=== PATIENT | female | born 1945 | race Caucasian/White ===

== ENCOUNTER 2017-07-07 08:23 | Outpatient (CLI) | payer MEDICARE, BC ==
[~2017-07-07] VITALS: Ht 165.1 cm; Wt 51.4 kg
--- NOTE | ~2017-07-07 | OP ---
PATIENT NAME: JAUN BARTON MEDICAL RECORD: [id number] :43 LOCATION:D.CAT ADMISSION DATE: SURGEON: JAYDE MUNOZ MD DATE OF OPERATION: 07/07/2017 PROCEDURE: 1. GAS LINE INSTALLER SUPERVISOR stent right iliac. 2. Aortofemoral runoff. 3. Abdominal aortography. INDICATION: Claudication and peripheral vascular disease. PROCEDURE IN DETAIL: After informed consent was obtained and after detailed explanation of risks, benefits as well as alternative therapies, the patient elected to proceed with angiogram and angioplasty. The right femoral area was prepped and draped in normal sterile fashion. The right femoral artery was cannulated via modified Seldinger technique with placement of 6-Japanese sheath. All catheters exchanged through this sheath. FINDINGS: Abdominal aortography was performed. The catheter was pulled down for aortofemoral runoff. Abdominal aortography reveals no significant abdominal aortic disease. No dissection or aneurysm formation or previously placed renal stent that is widely patent noted, renal artery stenosis elsewise. RIGHT LEG: A. Iliac. The common iliac has greater than 80% stenosis at the ostium. Otherwise, the iliac have mild irregularities. B. Femoral system: The common superficial and deep femoral have mild irregularities, but no flow-limiting stenosis. C. Popliteal and infrapopliteal vessels are patent, although is diffusely diseased providing 3-vessel runoff to the foot. LEFT LEG: A. Iliac: The common internal and external iliacs have mild irregularities, but no flow-limiting stenosis. B. Femoral system: The common superficial and deep femoral have mild irregularities, but no flow-limiting stenosis. C. Popliteal and infrapopliteal vessels, popliteal is widely patent. Anterior tibial is totally occluded, peroneal and posterior tibial are patent, giving 2-vessel runoff to the foot. GAS LINE INSTALLER SUPERVISOR STENT OF THE RIGHT ILIAC: The balloon with stent combination used were 7-18 Cordis Maday taken to 15 atmospheres. Result was 0% residual stenosis. OVERALL IMPRESSION: Successful GAS LINE INSTALLER SUPERVISOR stent of the right iliac going from 80% initial stenosis to 0% residual. TRANSINT:[id number] Voice Confirmation ID: [id number] DOCUMENT ID: [id number] OPERATIVE REPORT [id number] JAUN BARTON JAYDE MUNOZ MD CC: [id number] DICTATION DATE: 07/07/17 1141 ELECTRIC ORGAN ASSEMBLER: 07/07/17 1234 [facility] [address] [place] [address]
--- NOTE | ~2017-07-07 | OP ---
PATIENT NAME: JAUN BARTON MEDICAL RECORD: [id number] :43 LOCATION:D.CAT ADMISSION DATE: SURGEON: JAYDE MUNOZ MD DATE OF OPERATION: 07/07/2017 PROCEDURES: 1. PTCA, LAD. 2. Intravascular ultrasound of LAD. 3. Left heart catheterization. 4. Selective coronary angiography. 5. Left ventriculogram. INDICATION: Angina and coronary artery disease. PROCEDURE IN DETAIL: After informed consent was obtained and after detailed explanation of risks, benefits as well as alternative therapies, the patient to proceed with angiogram and angioplasty. The right femoral area had a preexisting 6-[place] Citizen sheath from peripheral intervention. All catheters exchanged through this sheath. FINDINGS: The left ventriculogram was performed in standard 30-degree KIRKLAND view, reveals good cardiac wall motion throughout all segments. Overall ejection fraction estimated 60%. SELECTIVE CORONARY ANGIOGRAPHY: 1. Left main showed no significant angiographic disease. 2. Left anterior descending has previously placed stents. Intravascular ultrasound reveals there is greater than 80% in-stent restenosis in the mid vessel. 3. Left circumflex shows mild irregularities, but no flow-limiting stenosis. 4. Right coronary artery has mild irregularities, but no flow-limiting stenosis. PTCA OF THE LAD: We did high pressure PTCA with NC Euphora balloon up to 19 atmospheres. Result was 0% residual stenosis. OVERALL IMPRESSION: Successful high pressure percutaneous transluminal coronary angioplasty for in-stent restenosis of the left anterior descending going from 80% initial stenosis to 0% residual. TRANSINT:[id number] Voice Confirmation ID: [id number] DOCUMENT ID: [id number] JAYDE MUNOZ MD CC: [id number] DICTATION DATE: 07/07/17 1141 ANIMAL PHYSIOLOGIST: 07/07/17 1229 [facility] [address] [place] [id number]
--- NOTE | ~2017-07-07 | HEMODYNAMI ---
PATIENT:JAUN BARTON MEDICAL RECORD: [id number] : 43 LOCATION:JAMES ADMISSION DATE: 07/07/17 Generatedon:07/07/201711:49 Patient name: JAUN BARTON Patient #: [id number] SSN: DO B: 1945 Date of study: 07/07/2017 Page: Of Hemodynamic Procedure Report Patient Data Patient Demographics Procedure consent was obtained First Name: JAUN Gender: Female Last Name: ORALIA : 1945 Middle Initial: W Age: 72 year(s) Patient #: [id number] Race: Unknown Additional ID: [id number] Contact details [address]: [address] [place] [address] State: [place] City: [place] Zip code: [address] Past Medical History Allergies: No known allergies Admission Admission Data Admission Date: 07/07/2017 Admission Time: 8:23 Procedure Procedure Types Cath Procedure Diagnostic Procedure LHC LHC w/Coronaries FFR/IVUS Intra-Coronary IVUS Initial PCI Procedure PTCA PTCA Initial Miscellaneous Procedures Moderate Sedation up to 15 minutes Peripheral Cath Diagnostic Procedure Cath Peripheral Ymbwd-Zyvjkax-Egb-Off Procedure Description Procedure Date Procedure Date: 07/07/2017 Procedure Start Time: 11:15 Procedure End Time: 11:49 Procedure Staff Name Function Domenico Anaya MD Performing Physician Cara Del Castillo RN Nurse Marysol Duarte RT Scrub Dorys Nguyễn RT Monitor Procedure Data Cath Procedure Fluoroscopy Diagnostic fluoroscopy Total fluoroscopy Time: 5.8 time: 5.8 min min Diagnostic fluoroscopy Total fluoroscopy dose: 617 dose: 617 mGy mGy Contrast Material Contrast Material Type Amount (ml) Isovue 300 205 Entry Location Entry Primary Successful Side Size Upsize 1 Upsize Entry Closure [place] ccessful Closure Location (Fr) (Fr) 2 (Fr) Remarks Device Remarks Femoral Right 5 Fr 6 Fr 6 Fr Exoseal artery Mid-Length Short Estimated blood loss: 10 ml Diagnostic catheters Device Type Used For End Catheter Placement MULTIPACK Pigtail 5 Fr LV Angiography catheter MULTIPACK Pigtail 5 Fr Abdominal catheter aortogram with runoff MULTIPACK JL 4.0 5Fr Left Coronary catheter Angiography MULTIPACK 3DRC 5Fr Right Coronary catheter Angiography Procedure Complications No complications Procedure Medications Medication Administration Route Dosage 0.9% NaCl I.V. 100 ml/hr Oxygen NC 2 l/min Lidocaine 2% added to field 20 Heparin Flush Bag added to field 2 bags (1000units/500ml NS) Versed I.V. 1 mg Fentanyl I.V. 50 mcg Fentanyl I.V. 50 mcg Versed I.V. 1 mg Heparin Bolus I.V. 4000 units Fentanyl I.V. 50 mcg Lopressor I.V. 5 mg Hemodynamics Rest Heart Rate: 68 (bpm) Snapshots Pre Cath Intra NCS Post Cath Vital Signs Time Heart Resp SPO2 etCO2 NIBP (mmHg) Rhythm Pain Sedation Rate (ipm) (%) (mmHg) Status Level (bpm) 10:59:22 65 14 100 35.3 238/91(175) NSR 0 (11) 10(A) , No pain 11:04:00 66 16 96 38.3 224/97(172) NSR 0 (11) 10(A) , No pain 11:08:35 66 19 100 17.3 213/94(173) NSR 0 (11) 10(A) , No pain 11:13:07 72 18 100 20.3 198/88(160) NSR 0 (11) 10(A) , No pain 11:17:44 74 16 100 33.9 194/66(145) NSR 0 (11) 9(A) , No pain 11:22:10 77 17 100 24.8 200/92(146) NSR 0 (11) 9(A) , No pain 11:26:38 75 14 97 0 177/87(149) NSR 0 (11) 9(A) , No pain 11:32:06 87 17 95 26.3 195/89(142) NSR 0 (11) 9(A) , No pain 11:36:32 85 18 97 16.5 196/91(155) NSR 0 (11) 10(A) , No pain 11:40:54 101 18 97 34.6 191/99(150) NSR 0 (11) 10(A) , No pain 11:45:16 92 19 98 30.1 184/102(141) NSR 0 (11) 10(A) , No pain Medications Time Medication Route Dose Verified Delivered Reason Not es Effectiveness by by 10:57:38 0.9% NaCl I.V. 100ml/hr Domenico Cara used for Jaclyn Del Castillo RN procedure 10:57:47 Oxygen NC 2 l/min Domenico Marroquin Per physician Jaclyn Del Castillo RN 10:57:53 Lidocaine 2% added 20ml Domenico Domenico for local to vial Jaclyn Anaya MD anesthetic field 10:58:00 Heparin Flush added 2 bags Domenico Acuña used for Bag to Jaclyn Anaya MD procedure (1000units/500ml field NS) 11:13:58 Versed I.V. 1 mg Domenico Onofrefany for sedation Jaclyn Del Castillo RN 11:14:07 Fentanyl I.V. 50 mcg Domenico Marroquin for sedation Jaclyn Del Castillo RN 11:15:05 Heparin Bolus I.V. 4000 Domenico Onofrefany for pamela ified units Jaclyn Del Castillo RN anticoagulation by 11:15:59 Fentanyl I.V. 50 mcg Domenico Onofrefany for sedation Jaclyn Del Castillo RN 11:16:05 Versed I.V. 1 mg Domenico Onofrefany for sedation Jaclyn Del Castillo RN 11:27:00 Fentanyl I.V. 50 mcg Domenico Marroquin for sedation Jaclyn Del Castillo RN 11:42:57 Lopressor I.V. 5 mg Domenico Onofrefany Per physician Jaclyn Del Castillo RN Procedure Log Time Note 10:40:58 Cara Del Castillo RN sent for patient. Start room use. 10:52:04 Time tracking: Regular hours 10:52:08 Plan of Care:Hemodynamics will remain stable., Cardiac rhythm will remain stable., Comfort level will be maintained., Respiratory function will remain adequate., Patient/ family verbilizes understanding of procedure., Procedure tolerated without complication., Recovers from procedure without complications.. 10:52:15 Patient received from Pre/Post Procedure Room to CCL 2 Alert and oriented. Tansferred to table in Supine position. 10:52:16 Warm blankets applied, and taty hugger turned on for patient comfort. 10:52:17 Correct patient and procedure confirmed by team. 10:52:18 Signed procedure consent form obtained from patient. 10:52:20 ECG and BP/O2 sat monitors applied to patient. 10:57:03 Vital chart was started 10:57:38 0.9% NaCl 100ml/hr I.V. was administered by Cara Del Castillo RN; used for procedure; 10:57:47 Oxygen 2 l/min NC was administered by Cara Del Castillo RN; Per physician; 10:57:53 Lidocaine 2% 20ml vial added to field was administered by Domenico Anaya MD; for local anesthetic; 10:58:00 Heparin Flush Bag (1000units/500ml NS) 2 bags added to field was administered by Domenico Anaya MD; used for procedure; 11:02:14 Baseline sample Acquired. 11:02:17 Rhythm: sinus rhythm 11:02:19 Full Disclosure recording started 11:02:32 H&P Date Dictated: 07/06/2017 Within 30 days and on chart., H&P Addendum completed by physician on day of procedure. (MUST COMPLETE FOR ALL OUTPATIENTS). 11:02:33 Pre-procedure instructions explained to patient. 11:02:34 Pre-op teaching completed and patient verbalized understanding. 11:02:35 Family in waiting room. 11:02:36 Patient NPO since Midnight. 11:02:44 Patient allergic to No known allergies 11:02:46 Is the patient allergic to Iodine/contrast media? No. 11:02:48 Is patient on blood thinner?Yes 11:02:50 ACC The patient was administered the following blood thiners within the last 24 hours: ACCPlavix 11:02:52 Patient diabetic? No. 11:02:55 Previous problem with sedation/anesthesia? No ? 11:02:56 Snore? Yes 11:02:56 Sleep apnea? No 11:02:57 Deviated septum? No 11:02:58 Opens mouth fully? Yes 11:02:59 Sticks out tongue? Yes 11:03:00 Airway obstruction? No ? 11:03:02 Dentures? No ? 11:03:04 Pre procedure: right dorsailis pedis pulse 2+ Normal; easily identifiable; not easily obliterated 11:03:06 Patient pain scale 0/10 ?. 11:03:17 IV patent on arrival in left hand with 0.9% NaCl at [facility]. 11:03:20 Lab results completed and on chart. 11:03:23 Right groin area was prepped with chlora-prep and draped in sterile fashion 11:03:23 Alarms reviewed by R. N. 11:03:24 Sharps counted by scrub and verified by R.N. 11:03:27 Use device set Femoral Dx 11:03:28 ACIST Syringe (59568) opened to sterile field. 11:03:28 Bag Decanter (2002S) opened to sterile field. 11:03:29 Medline Cath Pack ([id number]) opened to sterile field. 11:03:29 SHEATH 5FR Erie (TDE724) opened to sterile field. 11:03:30 DIAGNOSTIC WIRE .035 260cm J wire (909737) opened to sterile field. 11:03:31 ACIST Hand Control (00800) opened to sterile field. 11:03:31 ACIST Manifold (27850) opened to sterile field. 11:03:32 DIAGNOSTIC Multipack 5Fr catheter set (UB8090) opened to sterile field. 11:03:33 Tegaderm 4 x 4 (1626W) opened to sterile field. 11:03:33 PERCUTANEOUS ENTRY 19GA needle opened to sterile field. 11:08:37 Zero performed for pressure channel P1 11:13:31 Final Timeout: patient, procedure, and site verified with staff and physician. All members of the team are in agreement. 11:13:33 Right groin site verified by team. 11:13:35 Physical assessment completed. ASA score P 2 - A patient with mild systemic disease as per Domenico Anaya MD. 11:13:38 Sedation plan: IV Moderate Sedation Medication:Versed, Fentanyl 11:13:58 Versed 1 mg I.V. was administered by Cara Del Castillo RN; for sedation; 11:14:07 Fentanyl 50 mcg I.V. was administered by Cara Del Castillo RN; for sedation; 11:15:05 Heparin Bolus 4000 units I.V. was administered by Cara Del Castillo RN; for anticoagulation; verified by 11:15:12 Procedure started. 11:15:15 Local anesthetic to right femoral artery with Lidocaine 2% by Domenico Anaya MD.INITIAL ACCESS ONLY 11:15:23 A 5 Fr sheath was inserted into the Right Femoral artery 11:15:59 Fentanyl 50 mcg I.V. was administered by Cara Del Castillo RN; for sedation; 11:16:05 Versed 1 mg I.V. was administered by Cara Del Castillo RN; for sedation; 11:17:33 A MULTIPACK Pigtail 5 Fr catheter was advanced over the wire and used for LV Angiography. 11:17:51 LV gram done using KIRKLAND 11:17:56 EF : 70 % 11:17:58 LV hemodynamics recorded. 11:18:01 Injector settings: Ml/sec: 5, Volume: 15, 11:18:15 A MULTIPACK Pigtail 5 Fr catheter was advanced over the wire and used for Abdominal aortogram with runoff. 11:19:02 Catheter removed. 11:20:33 SHEATH 6FR Brite Tip 35cm (338755F) opened to sterile field. 11:20:44 Sheath upsized to a 6 Fr Mid-Length. 11:21:14 INFLATOR Merit BasixCompak (CG0816) opened to sterile field. 11:21:55 Procedure type changed to Cath procedure, Diagnostic procedure, LHC, LHC w/Coronaries, FFR/IVUS, Intra-Coronary IVUS Initial, PCI procedure, PTCA, PTCA Initial, Miscellaneous Procedures, Moderate Sedation up to 15 minutes, Peripheral Cath Diagnostic Procedure, Cath Peripheral, Rqnvv-Eiyzckj-Lyl-Off 11:23:29 Inflation Number: 1 A DESMOND 7 x 18 x 135 stent ([id number]) was prepped and advanced across the Ostial Common Iliac, Right. The stent was deployed at 15 JOSUE for 0:13 (min:sec). 11:24:36 Stent catheter was removed intact over wire. 11:24:53 A MULTIPACK JL 4.0 5Fr catheter was advanced over the wire and used for Left Coronary Angiography. 11:25:40 Catheter removed. 11:25:58 A MULTIPACK 3DRC 5Fr catheter was advanced over the wire and used for Right Coronary Angiography. 11:26:08 Use device set TAU PCI 11:26:11 SHEATH 6FR Erie (BTH686) opened to sterile field. 11:26:15 CHOICE PT Extra Support 182cm wire ([id number]) opened to sterile field. 11:26:17 GUIDE 6FR XBLAD 3.5 catheter ([id number]) opened to sterile field. 11:26:28 Catheter removed. 11:27:00 Fentanyl 50 mcg I.V. was administered by Cara Del Castillo RN; for sedation; 11:27:18 6 Fr XBLAD 3.5 guide catheter was inserted over the wire 11:28:15 CHOICE PT ES wire advanced. 11:28:59 IVUS catheter advanced over wire. 11:29:01 IVUS pass to LAD lesion performed. 11:30:52 IVUS catheter removed over wire. 11::58 Inflation number: 1 A NC EUPHORA 3.0 x 20 balloon ([id number]) was prepped and advanced across the Mid LAD, then inflated to 17 JOSUE for 0:14 (min:sec). 11:32:16 Inflation number: 2 The NC EUPHORA 3.0 x 20 balloon ([id number]) was reinflated across the Mid LAD, to 19 JOSUE for 0:11 (min:sec). 11:32:32 Inflation number: 3 The NC EUPHORA 3.0 x 20 balloon ([id number]) was reinflated across the Mid LAD, to 17 JOSUE for 0:08 (min:sec). 11:32:58 Balloon removed over the wire. 11:32:59 Wire removed. 11:33:00 Guide catheter removed. 11:33:26 Sheath upsized to a 6 Fr Short. 11:33:26 Sheath removed intact; hemostasis achieved with Exoseal to the Right Femoral artery. 11:33:28 Procedure ended.(Physican Out) 11:33:39 Fluoroscopy time 05.80 minutes. 11:33:43 Flurop Dose total: 617 11:33:43 Fluoroscopy dose: 617 mGy 11:33:57 Contrast amount:Isovue 300 205ml. 11:33:58 Sharps counted by scrub and verified by R.N. 11:34:00 Insertion/operative site no bleeding no hematoma. 11:34:02 Post-op/insertion site Right Femoral artery dressed using a 4 x 4 and Tegaderm. 11:34:05 Post right femoral artery:stable, clean and dry 11:34:06 Post Procedure Pulses reassessed and unchanged 11:34:09 Post-procedure physical assessment completed. ASA score P 2 - A patient with mild systemic disease as per Domenico Anaya MD. 11:34:11 Post procedure rhythm: unchanged. 11:34:14 Estimated blood loss: 10 ml 11:34:15 Post procedure instruction explained to patient.Patient verbalizes understanding. 11:34:15 Patient needs reinforcement of post procedure teaching. 11:36:06 Procedure Complication : No complications 11:36:08 See physician's report for complete and final results. 11:36:20 EXOSEAL 6Fr (EX600) opened to sterile field. 11:36:49 [place] Eagleye IVUS Catheter (24933Z) opened to sterile field. 11:37:39 Procedure and supply charges have been captured, reviewed, submitted and are correct. 11:42:57 Lopressor 5 mg I.V. was administered by Cara Del Castillo RN; Per physician; 11:48:43 Vital chart was stopped 11:48:48 Report given to Pre/Post Procedure Room. 11:48:55 Patient transfered to Pre/Post Procedure Room with Stretcher. 11:49:04 Procedure ended. 11:49:04 Full Disclosure recording stopped 11:49:09 End room use (Document Last) Intervention Summary Intervention Notes Time ActionType Lesion and Equipment Action# Pressure Duration Attributes Used 11:23:29 Place stent Ostial DESMOND 7 x 1 15 00:13 Common 18 x 135 Iliac, stent Right ([id number]) 11:31:58 Inflate Mid LAD NC EUPHORA 1 17 00:15 balloon 3.0 x 20 balloon ([id number]) 11:32:16 Reinflate Mid LAD NC EUPHORA 2 19 00:11 balloon 3.0 x 20 balloon ([id number]) 11:32:32 Reinflate Mid LAD NC EUPHORA 3 17 00:09 balloon 3.0 x 20 balloon ([id number]) Device Usage Item Name Manufacture Quantity Catalog Number Hospital Part Current Mini mal Lot# / Charge Number Stock Stock Serial# Code ACIST Acist 1 13413 579770 978807 039299 20 Syringe Medical (98544) Systems Inc Bag Decanter Microtek 1 925945 08573 199677 5 () Medical Inc. Medline Cath Cardinal 1 [id number] 910030 84964 682765 5 Pack Health ([id number]) SHEATH 5FR Terumo 1 AMZ473 600983 032605 436126 40 Erie (ETZ221) DIAGNOSTIC St Arturo 1 544158 819688 123326 623864 30 WIRE .035 260cm J wire (136525) ACIST Hand Acist 1 57919 223201 945561 426799 5 Control Medical (03245) Systems Inc ACIST Acist 1 63060 156714 569720 408562 5 Manifold Medical (43999) Systems Inc DIAGNOSTIC Cardinal 1 OD7215 017932 62727 413663 30 Multipack Health 5Fr catheter set (UB4505) Tegaderm 4 x 3M 1 1626W 751931 937446 270914 5 4 (1626W) PERCUTANEOUS Cook Medical 1 V58324 777869 564581 5 ENTRY 19GA needle MULTIPACK Cardinal 1 483529 5 Pigtail 5 Fr Health catheter SHEATH 6FR Cardinal 1 [id number] 075516 488809 059014 1 Brite Aimetis Health 35cm (142534H) INFLATOR [facility] 1 GJ1793 853414 388342 351967 15 Cyphoma BasixCompak (RM8038) DESMOND 7 x Cardinal 1 [id number] 586683 093212 5 [id number] 18 x 135 Health stent ([id number]) MULTIPACK JL Cardinal 1 804820 5 4.0 5Fr Health catheter MULTIPACK Cardinal 1 511898 5 3DRC 5Fr Health catheter SHEATH 6FR Terumo 1 LMW334 163707 014430 845181 40 Erie (JHT821) CHOICE PT [place] 1 [id number] 163207 055227 103964 5 Extra Scientific Support 182cm wire (5923387G7) GUIDE 6FR Cardinal 1 94219184 503180 066923 989326 10 XBLAD 3.5 Health catheter (10521303) NC EUPHORA Medtronic 1 [id number] 587879 329074 745746 0 [id number] 3.0 x 20 balloon ([id number]) EXOSEAL 6Fr Cardinal 1 EX600 039972 116174 410150 10 (EX600) Health [place] 1 59202E 095821 814071 173284 8 [place] Eagleye IVUS Catheter (77236M) Signature Audit [place] Stage Time Signature Unsigned Intra-Procedure 07/07/2017 Dorys 11:49:22 AM Counts RT(R) Signatures Monitor : Dorys Signature : Counts RT Date : Time : [address] [place] [address]
[~2017-07-07 08:23] MED LIST: ACETAMINOPHEN500 M1 PO; ACID REDUCER; ASPIRIN 81 MG E81 MG PO; AZULFIDINE500 MG PO; EFFIENT10 MG PO; HYZAAR 100-25 T1 TAB PO; IMDUR60 MG PO; K-TAB10 MEQ PO; MUCUS RELIEF400 MG; NITROSTAT0.4 MG SL; NORVASC5 MG PO; PRAVACHOL40 MG PO; PREDNISONE5 MG PO; PRILOSEC10 MG PO; RANEXA1000 MG PO; TRIGLIDE160 MG PO; ZEBETA5 MG PO; ZOLOFT50 MG PO
[2017-07-07] MEDS ORDERED: GEMFIBROZIL600 MG PO (09:22)
[2017-07-07] MEDS ORDERED: PLAVIX75 MG PO ×2 (09:24→12:04)
[2017-07-07] MEDS ORDERED: NEURONTIN 300300 MG PO (09:24)
[2017-07-07 09:45] VITALS: BP 137/65; Ht 165.1 cm; Wt 51.4 kg
[2017-07-07 09:45] LABS: HEMATOCRIT 39.9 % (36.0-48.0); HEMOGLOBIN 12.9 g/dL (12-16); RBC 4.18 10x6/uL (4.00-5.40); WBC 8.9 10x3/uL (4.8-10.8)
[2017-07-07 09:46] LABS: BASOPHILS 0.4 % (0-2); EOSINOPHILS 2.4 % (0-7); IMMATURE GRANULOCYTES 0.1 % (0-5); LYMPHOCYTES 33.1 % (15-50); MCH 30.9 pg (26.0-34.0); MCHC 32.3 g/dL (31.0-37.0); MCV 95.5 fL (80.0-100.0); MEAN PLATELET VOLUME 11.4 fL (7.4-10.4); MONOCYTES 12.7 % (2-11); NEUTROPHILS 51.3 % (40-80); PLATELET COUNT 315 10x3/uL (130-400); RDW 13.4 % (11.5-14.5)
[2017-07-07 09:50] LABS: CALC OSMOLALITY 248 mosm/kg (275-300); CARBON DIOXIDE 27.2 mmol/L (21.0-32.0); CHLORIDE - SERUM 94 mmol/L (98-107); CREATININE - SERUM 0.7 mg/dL (0.6-1.3); GLUCOSE 85 mg/dL (74-106); POTASSIUM - SERUM 3.8 mmol/L (3.5-5.1); SODIUM 124 mmol/L (136-145); UREA NITROGEN 13 mg/dL (7-18); eGFR NON AFRICAN AMERICAN 87 mL/min (90-120)
[2017-07-07] MEDS ORDERED: BETAPACE 80 MG80 MG PO (13:56)
== END 2017-07-07 16:07 | disposition home or self-care (01) ==
LOC: D.CATH 08:23
PROVIDERS: Internal Medicine Interventional Cardiology
DX: I25.119 Atherosclerotic heart disease of native coronary artery with unspecified angina pectoris (principal); I10 Essential (primary) hypertension; E78.5 Hyperlipidemia, unspecified; I70.219 Atherosclerosis of native arteries of extremities with intermittent claudication, unspecified extremity; Z01.812 Encounter for preprocedural laboratory examination